=== PATIENT | male | born 1930 | race Caucasian/White ===

== ENCOUNTER 2017-02-26 11:17 | Outpatient (CLI) | payer MEDICARE, OTHER ==
[2017-02-26 12:25] LABS: Hemoglobin 13.2 g/dL (14.0-18.0); Mean Corpuscular HGB CONC 32.8 g/dL (32.0-36.0); Mean Corpuscular Hemoglobin 30.8 pg (27.0-31.0); Mean Corpuscular Volume 93.9 fl (80.0-94.0); Mean Platelet Volume 8.6 fL (7.4-10.4); Platelet Count 110 thou/uL (130-400); White Blood Cell (WBC) Count 5.6 thou/uL (4.8-10.8)
[2017-02-26 12:39] LABS: Band 3 % (5-11); Lymphocytes 21 % (21-51); Monocytes 4 % (0-10); Reactive Lymphocytes 18 % (0-10)
== END 2017-02-26 11:18 | disposition home or self-care (01) ==
LOC: LABBT 11:17
PROVIDERS: ATTEND Orthopaedic Surgery Hand Surgery
DX: Z01.812 Encounter for preprocedural laboratory examination (principal); S62.637B Displaced fracture of distal phalanx of left little finger, initial encounter for open fracture; S61.319A Laceration without foreign body of unspecified finger with damage to nail, initial encounter
CPT/HCPCS: 85025

== ENCOUNTER 2017-02-27 06:52 | Day surgery (SDC) | payer MEDICARE, OTHER ==
[2017-02-26 11:23] VITALS: BMI 22.6
[2017-02-27] MEDS ORDERED: CEFAZOLIN/Water 2 GM/20 ML SYRINGE ONE (08:05)
[2017-02-27] MEDS ORDERED: Sodium Chloride 0.9% 10 ML ONE (08:10)
[2017-02-27] MEDS ORDERED: Bupivacaine PF 0.5% 30 ML VIAL ONE (08:10)
[2017-02-27] MEDS ORDERED: Thrombin 5000 UNITS/5 ML VIAL ONE (08:11)
[2017-02-27] MEDS ORDERED: Bacitracin Zinc Ointment 30 gm TUBE ONE (08:11)
[2017-02-27] MEDS ORDERED: Diprivan 60 ML ONE (08:40)
[2017-02-27] MEDS ORDERED: Fentanyl 100 MCG/2 ML VIAL ONE (08:40)
--- NOTE | 2017-02-27 11:59 | RAD ---
FLUOROSCOPIC IMAGING OF THE 5TH DIGIT LEFT HAND: CLINICAL HISTORY: Fifth finger pinning. FINDINGS: Operative magnified fluoroscopic views are performed to demonstrate pinning of the distal phalanx of the 5th digit. Osseous detail is limited. IMPRESSION: Intraoperative views for operative pinning of the distal 5th digit of the left hand. POS: MINNIE
--- NOTE | 2017-02-27 12:00 | OP ---
DATE OF PROCEDURE: 02/27/2017 PREOPERATIVE DIAGNOSES: 1. Left open small finger distal phalanx fracture. 2. Left nail bed hematoma subungual and left transverse nail bed laceration. POSTOPERATIVE DIAGNOSES/FINDINGS: A 2 centimeter laceration in the nailbed, hematoma around the ____ _ along with displacement of fracture and separation of the nail bed laceration. PROCEDURE PERFORMED: 1. Debridement. 2. Fracture 2 repair of nailbed laceration. 3. ORIF distal phalanx fracture. 4. Removal of nail. 5. Evacuation of nail bed hematoma. TOURNIQUET TIME: 15 minutes. small C-arm. IMPLANTS: 3.5 mm K-wire. SURGEON: Kevin Ramirez M.D. ANESTHESIA: Conscious sedation IV with 10 mL 0.5%, small finger metacarpophalangeal joint level bloc k. DESCRIPTION OF PROCEDURE: After successful general endotracheal anesthesia listed above, the limb wa s prepped and draped. Timeout was done appropriately, the limb was exsanguinated, tourniquet inflate d to 250 mmHg pressure. We then removed the nail. We found a hematoma, we evacuated the hematoma. We cleaned the seat of the nailbed. The nailbed was displaced about 2-3 mm and it was a complete tra nsverse 2.0 cm laceration at the mid nail level. This matched the fracture. We opened this after de briding the hematoma, underneath it was displaced fracture, we debrided this with the following techn iques; A) use of a [place] blade as well as a curet and [place]. B) Excision technique; C) debridement was complete around the bone both sides of the fracture to the depth of the underlying volar soft ti ssue and deep. There was no evidence of complication, bleeding or infection. Then we reduced the fracture, saw it in front of the sagittal plane, placed a 0.035 K-wire because it was small and partially comminuted which held it in a nearly anatomic position with good apposition in front of the sagittal plane. We moved the C-Arm from the field, cut the wire flush 1 mm under the tuft distal tip skin and then re paired the nail bed laceration with interrupted 6-0 chromic suture. Bulky dressing was applied after placing the remnant of the nail in the eponychial fold with Adaptic, bacitracin. Finished the dress ing with 4 x 4s and then followed with finger tube gauze put a loop around the wrist to keep it from falling off, held by Elyssa. The patient left the operating room without evidence of anesthetic comp lication.
[2017-02-27] MEDS ORDERED: Lidocaine 1% PF 5 ML VIAL ONE (12:36)
[2017-02-27] MEDS ORDERED: Ondansetron HCl/PF 4 MG/2 ML Vial ONE (12:36)
[2017-02-27] MEDS ORDERED: ePHEDrine/0.9% NaCl/PF SYRINGE 50 mg/10 ml ONE (12:36)
== END 2017-02-27 11:00 | disposition home or self-care (01) ==
LOC: SDC 06:52
PROVIDERS: ATTEND Orthopaedic Surgery Hand Surgery
PROC: 0PSV04Z Reposition Left Finger Phalanx with Internal Fixation Device, Open Approach (ICD-10-PCS; principal; 2017-02-27)
PROC: 0PSV04Z Reposition Left Finger Phalanx with Internal Fixation Device, Open Approach (ICD-10-PCS; 2017-02-27)
PROC: 0HTQXZZ Resection of Finger Nail, External Approach (ICD-10-PCS; 2017-02-27)
DX: S62.637B Displaced fracture of distal phalanx of left little finger, initial encounter for open fracture (principal); S60.152A Contusion of left little finger with damage to nail, initial encounter; K21.9 Gastro-esophageal reflux disease without esophagitis; E78.00 Pure hypercholesterolemia, unspecified; I10 Essential (primary) hypertension; Z79.82 Long term (current) use of aspirin; Z79.2 Long term (current) use of antibiotics; Z79.899 Other long term (current) drug therapy; Z98.42 Cataract extraction status, left eye; Z98.41 Cataract extraction status, right eye; Z96.653 Presence of artificial knee joint, bilateral; Z90.49 Acquired absence of other specified parts of digestive tract; Z98.890 Other specified postprocedural states
CPT/HCPCS: 76001; A4216; J2001; J2405; J2704; J3010; J3490; S0020

== ENCOUNTER 2017-04-23 17:03 | Day surgery (SDC) | payer MEDICARE, OTHER ==
[~2017-04-23 17:03] MED LIST: Propofol 200 MG/20 ML VIAL ONE
[2017-04-23] MEDS ORDERED: Bupivacaine 0.5% 10 ML VIAL ONE (17:28)
[2017-04-23] MEDS ORDERED: Bacitracin Zinc Ointment 30 gm TUBE ONE (17:28)
[2017-04-23] MEDS ORDERED: Sodium Chloride 0.9% 10 ML ONE (17:29)
[2017-04-23] MEDS ORDERED: Fentanyl 250 MCG/5 ML VIAL ONE (17:51)
[2017-04-23] MEDS ORDERED: Propofol 500 MG/50 ML VIAL ONE (17:56)
[2017-04-23] MEDS ORDERED: CEFAZOLIN/Water 2 GM/20 ML SYRINGE ONE (18:01)
[2017-04-23 18:15] LABS: #Eosinphils 0.1 thou/uL (0.0-0.7); #Monocytes 0.8 thou/uL (0.11-0.59); #Neutrophils 3.5 thou/uL (1.40-6.50); %Eosinophils 1.2 % (0.0-10.0); %Lymphocytes 31.6 % (21.0-51.0); %Monocytes 12.4 % (0.0-10.0); %Neutrophils 54.8 % (42.0-75.0); Hemoglobin 11.8 g/dL (14.0-18.0); Mean Corpuscular HGB CONC 34.4 g/dL (32.0-36.0); Mean Corpuscular Volume 90.2 fl (80.0-94.0); Mean Platelet Volume 8.3 fL (7.4-10.4); Platelet Count 118 thou/uL (130-400); RBC Distribution Width 11.5 % (11.5-14.5); White Blood Cell (WBC) Count 6.4 thou/uL (4.8-10.8)
--- NOTE | 2017-04-23 21:31 | RAD ---
LEFT FIFTH FINGER: 04/23/17 There are two fluoroscopic images presented from the OR. INDICATIONS: Fluoro performed in OR for removal of foreign body from left fifth finger. IMPRESSION: No osseous abnormality identified on this two view exam. POS: STACY
--- NOTE | 2017-04-24 06:27 | OP ---
DATE OF PROCEDURE: 04/23/2017 PREOPERATIVE DIAGNOSIS: Painful K-wire implant, left small finger distal phalanx. POSTOPERATIVE DIAGNOSIS: Painful K-wire implant, left small finger distal phalanx. PROCEDURES PERFORMED: 1. Open removal, K-wire in left small finger. 2. C-arm supervision of the small finger less than or equal to 1 hour. SPECIMEN REMOVED: K-wire. ESTIMATED BLOOD LOSS: Less than or equal to 5 mL. TOURNIQUET TIME: 5 minutes. SURGEON: Dr. Kevin Ramirez. ANESTHESIA: DON Zapata for [place]. FINDINGS: The pin was flush with bone, very difficult to remove in clinic, I had to use small instru ments under C-arm guidance. DESCRIPTION OF PROCEDURE: After successful anesthesia which was 10 mL 0.5% Marcaine block metacarpop halangeal joint level and IV sedation by [place], waited 5 minutes until blocks took effe ct, exsanguinated the limb, and then brought the C-arm to the field. Localizing wire as much as geovanny soares, we made a small 4 mm opening, dissected down to the wire, we could see the bone, and then slowl y with a small Bey , I was able to dislodge the wire and pulled it out. We irrigated the ar ea with 50 mL normal saline with antibiotic bacitracin side. We then released the tourniquet and had excellent hemostasis and the digit was pink. Closed the wound with 3 interrupted 5-0 chromic simple sutures. Bulky dressing was applied that was small and the patient left the operating room without evidence of anesthetic or operative complicatio n.
== END 2017-04-23 20:00 | disposition home or self-care (01) ==
LOC: SDC 17:03
PROVIDERS: ATTEND Orthopaedic Surgery Hand Surgery
PROC: 0RPX04Z Removal of Internal Fixation Device from Left Finger Phalangeal Joint, Open Approach (ICD-10-PCS; principal; 2017-04-23)
DX: T84.84XA Pain due to internal orthopedic prosthetic devices, implants and grafts, initial encounter (principal); M19.90 Unspecified osteoarthritis, unspecified site; I10 Essential (primary) hypertension; E78.00 Pure hypercholesterolemia, unspecified; K21.9 Gastro-esophageal reflux disease without esophagitis; G47.00 Insomnia, unspecified; Z79.82 Long term (current) use of aspirin; Z79.899 Other long term (current) drug therapy; Z96.653 Presence of artificial knee joint, bilateral; Z98.890 Other specified postprocedural states
CPT/HCPCS: 76001; 85025; A4216; J2704; J3010; J3490

== ENCOUNTER 2017-12-26 08:56 | Emergency (ER) | payer MEDICARE, OTHER | END 2017-12-26 09:49 | disposition home or self-care (01) | LOC: SCSER 08:56 | DX: M54.2 Cervicalgia (principal); M54.6 Pain in thoracic spine; E78.5 Hyperlipidemia, unspecified; I10 Essential (primary) hypertension; M19.90 Unspecified osteoarthritis, unspecified site; Z79.899 Other long term (current) drug therapy; Z79.891 Long term (current) use of opiate analgesic; Z79.82 Long term (current) use of aspirin | CPT/HCPCS: 99283 ==

== ENCOUNTER 2018-11-24 12:34 | Outpatient (CLI) | payer MEDICARE, OTHER ==
--- NOTE | 2018-11-24 13:58 | MRI ---
MRI CERVICAL SPINE WITHOUT CONTRAST: 11/24/2018 HISTORY: Unsteady gait. History of falls. Spondylosis. COMPARISON: None. TECHNIQUE: Multiplanar, multisequence MR imaging of the cervical spine obtained without contrast. FINDINGS: There is prominent degenerative pseudo pannus posterior to the dens. Sagittal STIR imaging demonstrates no focal area of osseous marrow edema. C2-C3: Disk desiccation. No significant central canal or neural foraminal stenosis. C3-C4: Disk space narrowing, disk desiccation and disk bulge present with effacement of the ventral t hecal sac and moderate central canal stenosis. Bilateral facet and uncovertebral osteophyte formation with mild bilateral neural foraminal stenosis. C4-C5: No significant central canal stenosis. Mild right neural foraminal stenosis on the basis of fa cet and uncovertebral osteophyte formation. C5-C6: There is disk space narrowing, disk desiccation and disk osteophyte complex effacing the ventr al thecal sac and abutting the ventral aspect of the cord with a moderate degree of central canal behzad nosis. Bilateral facet and uncovertebral osteophyte formation noted with mild/moderate right and mode rate left neural foraminal stenosis. C6-C7: There is disk space narrowing, disk desiccation and degenerative endplate change with disk bul ge partially effacing the ventral thecal sac. There is a probable superimposed central disk protrusio n with inferior migration causing severe central canal stenosis. Severe right and moderate/severe lef t neural foraminal stenosis noted on the basis of facet and uncovertebral osteophyte formation. C7-T1: Disk desiccation and disk space narrowing. Bilateral facet hypertrophy. Mild central canal behzad nosis and moderate bilateral neural foraminal stenosis. T1-T2: There is disk space narrowing and disk desiccation with disk bulge causing mild central canal stenosis. There is no focal area of abnormal signal intensity identified within the cervical cord. IMPRESSION: Prominent multilevel cervical spine degenerative change as described above. POS: TPC
--- NOTE | 2018-11-24 14:08 | MRI ---
MRI BRAIN WITH AND WITHOUT IV CONTRAST: HISTORY: Mild cognitive impairment. Increasing unsteady gait COMPARISON: None FINDINGS: No restricted diffusion is seen. No evidence of infarct, hemorrhage, mass, midline shift or abnormal extra-axial fluid collections is noted. No abnormal postcontrast enhancement is seen. The ventricular size is appropriate and the basilar cisterns are patent. The visualized paranasal sinuses and mastoid air cells are well aerated. IMPRESSION: No evidence of acute intracranial process or mass.
== END 2018-11-24 12:35 | disposition home or self-care (01) ==
LOC: MRI 12:34
PROVIDERS: ATTEND Psychiatry & Neurology Neurology
DX: M47.812 Spondylosis without myelopathy or radiculopathy, cervical region (principal); G31.84 Mild cognitive impairment of uncertain or unknown etiology
CPT/HCPCS: 70553; 72141; 82565

== ENCOUNTER 2018-12-08 09:30 | Outpatient (CLI) | payer MEDICARE, OTHER ==
[2018-12-08 12:26] LABS: #Lymphocytes 1.6 thou/uL (1.20-3.40); #Monocytes 0.7 thou/uL (0.11-0.59); #Neutrophils 2.2 thou/uL (1.40-6.50); %Basophils 0.1 % (0.0-1.0); %Eosinophils 0.6 % (0.0-10.0); %Lymphocytes 35.5 % (21.0-51.0); %Monocytes 14.7 % (0.0-10.0); %Neutrophils 49.1 % (42.0-75.0); Hemoglobin 13.1 g/dL (14.0-18.0); Mean Corpuscular HGB CONC 34.2 g/dL (32.0-36.0); Mean Corpuscular Hemoglobin 31.5 pg (27.0-31.0); Mean Corpuscular Volume 92.2 fL (78.0-98.0); Mean Platelet Volume 9.6 fL (7.4-10.4); Platelet Count 91 thou/uL (130-400); RBC Distribution Width 12.1 % (11.5-14.5); Red Blood Cell (RBC) Count 4.14 mill/uL (4.70-6.10); White Blood Cell (WBC) Count 4.5 thou/uL (4.8-10.8)
[2018-12-08 12:30] LABS: Anion Gap 12 mmol/L (10-20); BUN (Urea Nitrogen) 13 mg/dL (8.4-25.7); Calc. Creatinine Clearance 0 mL/min (70-130); Carbon Dioxide 24 mmol/L (23-31); Chloride 105 mmol/L (98-107); Estimated GFR-MDRD 71; Glucose 97 mg/dL (83-110); Potassium 4.3 mmol/L (3.5-5.1); Sodium 137 mmol/L (136-145)
--- NOTE | 2018-12-08 17:00 | EKG ---
Test Reason : Blood Pressure : / mmHG Vent. Rate : 070 BPM Atrial Rate : 500 BPM P-R Int : 000 ms QRS Dur : 096 ms QT Int : 444 ms P-R-T Axes : 000 097 020 degrees QTc Int : 479 ms Electronic atrial pacemaker Rightward axis Cannot rule out Anterior infarct , age undetermined Abnormal ECG Confirmed by SHIV YE ([id number]) on 12/08/2018 5:00:37 PM Referred By: SACHA Confirmed By:SHIV YE
== END 2018-12-08 09:31 | disposition home or self-care (01) ==
LOC: LABBT 09:30
PROVIDERS: ATTEND Orthopaedic Surgery Hand Surgery
DX: Z01.818 Encounter for other preprocedural examination (principal); G56.03 Carpal tunnel syndrome, bilateral upper limbs
CPT/HCPCS: 80048; 85025; 93005; 93010

== ENCOUNTER 2018-12-13 11:52 | Day surgery (SDC) | payer MEDICARE, OTHER ==
[2018-12-08 10:17] VITALS: BMI 26.1
[2018-12-13] MEDS ORDERED: Fentanyl 100 MCG/2 ML VIAL ONE (13:22)
[2018-12-13] MEDS ORDERED: Betamet Acet/Betamet Na Ph 30 MG/5 ML VIAL ONE (13:37)
[2018-12-13] MEDS ORDERED: Bacitracin Zinc Ointment 30 gm TUBE ONE (13:37)
[2018-12-13] MEDS ORDERED: Bupivacaine PF 0.5% 30 ML VIAL ONE (13:37)
[2018-12-13] MEDS ORDERED: Ondansetron PF 4 MG/2 ML Vial ONE (15:19)
[2018-12-13] MEDS ORDERED: Lidocaine 1% PF 5 ML VIAL ONE (15:19)
[2018-12-13] MEDS ORDERED: PROPOFOL 200 MG/20 ML VIAL ONE (15:19)
[2018-12-13] MEDS ORDERED: Labetalol HCl 100 MG/20 ML VIAL ONE (15:48)
[2018-12-13] MEDS ORDERED: hydrALAZINE 20 MG/ML VIAL ONE (15:57)
--- NOTE | 2018-12-13 21:53 | OP ---
DATE OF PROCEDURE: 12/13/2018 PREOPERATIVE DIAGNOSES: 1. Right carpal tunnel syndrome. 2. Left carpal tunnel syndrome. POSTOPERATIVE DIAGNOSES AND FINDINGS: 1. Right carpal tunnel syndrome. 2. Left carpal tunnel syndrome. 3. Both sides, 1.5 cm long area with hourglass formation almost approximately 1/3 narrow with stippling and erythema in the center of the transverse carpal ligament, both median nerves. TOURNIQUET TIME: Right 14 minutes, left 14 minutes. ESTIMATED BLOOD LOSS: Right, less than 5 mL. Left, less than 5 mL. ANESTHESIA: General LMA technique by [place] [facility] augmented by 15 mL of 0.5% Marcaine block, 10 given before surgery and 5 given after. The wound was closed at both sites individually, left and right. DESCRIPTION OF PROCEDURE: The right side was approached first after prepping and draping and time-out was done, but both were simultaneously prepped and draped. We outlined incision which was in line with Castañeda cardinal line distally and proximally to a 0.5 mm distal to the volar wrist flexion crease. Incision was in line medial and lateral with the ring finger and carried this through the skin and subcutaneous tissue through the crease down subcutaneous until we dissected bluntly to the level of the palmaris longus on the transverse carpal ligament. Through the center of the palmaris longus tendon, we made an incision, carried it through the tendon, transcarpal ligament until we saw the nerve and tendon. From here, we switched to going from here distally using a combination of [place] blade and tenotomy scissors, lifted up the transverse carpal ligament, protected the underlying structures to include a type 1 takeoff of the median motor branch. We then turned our attention from the midportion proximally and did the same type of procedure, lifting up the skin so we could visualize proximal to the volar wrist flexion crease and released it under direct visualization using a combination of [place] blade and tenotomy scissors. It was completely freed it was here we saw the 1.5 cm area of stippling with allograft formation and narrowing. We placed 2.5 mL Celestone in this wound, released the tourniquet, obtained hemostasis, and closed the wound with interrupted 4-0 nylon. Bacitracin, Adaptic, 4 x 4, and Kerlix were placed. We turned our attention to the contralateral left side and the exact mirror image procedure to include finding, amount of Cel[place], and tourniquet time was performed on the left. At this time, however, we completed both dressing with a 3 cm Ottoniel wrap on top with bulky dressing and the patient left the operating room going to Recovery without evidence of anesthetic or operative complication. Job ID: [id number]
== END 2018-12-13 17:10 | disposition home or self-care (01) ==
LOC: SDC 11:52
PROVIDERS: ATTEND Orthopaedic Surgery Hand Surgery
PROC: 01N50ZZ Release Median Nerve, Open Approach (ICD-10-PCS; principal; 2018-12-13)
PROC: 01N50ZZ Release Median Nerve, Open Approach (ICD-10-PCS; 2018-12-13)
DX: G56.03 Carpal tunnel syndrome, bilateral upper limbs (principal); M19.90 Unspecified osteoarthritis, unspecified site; I10 Essential (primary) hypertension; E78.00 Pure hypercholesterolemia, unspecified; K21.9 Gastro-esophageal reflux disease without esophagitis; E07.9 Disorder of thyroid, unspecified; Z79.82 Long term (current) use of aspirin; Z79.899 Other long term (current) drug therapy; Z95.0 Presence of cardiac pacemaker
CPT/HCPCS: J0360; J0690; J0702; J2001; J2405; J2704; J3010; S0020